=== PATIENT | female | born 1980 | race Caucasian/White ===

== ENCOUNTER 2019-12-06 09:15 | Outpatient (CLI) | payer OTHER, SELFPAY ==
--- NOTE | ~2019-12-06 | US_ITS ---
EXAMINATION: US venous doppler [facility] DATE: 12/06/2019 09:54 INDICATION: Lower limb edema TECHNIQUE: Cabral scale images without and with compression and Doppler images of the bilateral lower e xtremity veins were obtained. COMPARISON: None. FINDINGS: The right common femoral vein, profunda femoral vein, femoral vein, popliteal vein, peroneal trunk, p osterior tibial veins, and greater saphenous vein are patent. The left common femoral vein, profunda femoral vein, femoral vein, popliteal vein, peroneal trunk, po sterior tibial veins, and greater saphenous vein are patent. IMPRESSION: 1. Patent bilateral lower extremity veins. No evidence of deep venous thrombosis. Reviewed, dictated and finalized at location A. [place] ADMINISTRATIVE ASSISTANT IMPRESSION: 1. Patent bilateral lower extremity veins. No evidence of deep venous thrombosi s.
== END 2019-12-06 09:16 | disposition home or self-care (01) ==
LOC: ANHIMG 09:20
PROVIDERS: PCP Internal Medicine; Visit Provider Internal Medicine
DX: R60.0 Localized edema (principal)
CPT/HCPCS: 93970

== ENCOUNTER 2020-03-30 08:54 | Outpatient (CLI) | payer OTHER, SELFPAY ==
--- NOTE | ~2020-03-30 | US_ITS ---
US right upper quadrant INDICATION: Elevated liver enzymes PROCEDURE: Realtime right upper abdominal ultrasound. COMPARISON: Ultrasound dated 04/08/2018 FINDINGS: The pancreas is normal without focal mass or pancreatic ductal dilation. Liver is enlarged measuring 22 cm. Liver echotexture is increased, consistent with fatty infiltration. There is ana l directional flow in the portal vein. Gallbladder is surgically absent. Common bile duct measures 6.7 mm. IMPRESSION: 1: Hepatomegaly with fatty infiltration of the liver. Reviewed, dictated and finalized at location A.
== END 2020-03-30 08:55 | disposition home or self-care (01) ==
PROVIDERS: PCP Internal Medicine; Visit Provider Internal Medicine
DX: R74.8 Abnormal levels of other serum enzymes (principal)
CPT/HCPCS: 76705

== ENCOUNTER 2020-09-20 11:29 | Outpatient (CLI) | payer BC, SELFPAY ==
--- NOTE | ~2020-09-20 | MM_ITS ---
EXAMINATION: MM screening jose angel BI w priyanka HISTORY: Screening mammogram TECHNIQUE: Craniocaudal and mediolateral oblique 3-D tomosynthesis images were obtained and synthetic 2-D images were generated. CAD analysis was submitted and interpreted. COMPARISON: None, baseline BREAST PARENCHYMAL COMPOSITION: There are scattered areas of fibroglandular density. FINDINGS: There is no evidence of suspicious mass, calcification, or architectural distortion to sugg est malignancy in either breast. IMPRESSION: 1. No mammographic evidence of malignancy. 2. Recommend routine screening mammography in one year. BI-RADS Category 1: Negative Reviewed, dictated and finalized at location A. N TUNER
== END 2020-09-20 11:30 | disposition home or self-care (01) ==
LOC: ANHIMG 11:33
PROVIDERS: PCP Internal Medicine; Visit Provider Internal Medicine
DX: Z12.31 Encounter for screening mammogram for malignant neoplasm of breast (principal)
CPT/HCPCS: 77063; 77067

== ENCOUNTER 2021-09-04 13:46 | Emergency (ER) | payer BC, SELFPAY ==
[2021-09-04 13:56] VITALS: BP 151/90; PULSE 100; RESP 20; TEMP 36.2; O2SAT 99
[2021-09-04 14:00] VITALS: BP 151/90; PULSE 100; RESP 20; TEMP 36.2; O2SAT 99
--- NOTE | 2021-09-04 14:19 | ED.GENADULT ---
HPI - General Adult General Chief complaint: Skin/Abscess/Foreign Body Stated complaint: rash Time Seen by Provider: 09/04/21 14:23 Source: patient Mode of arrival: ambulatory Limitations: no limitations History of Present Illness HPI narrative: 41-year-old female patient presents to the [facility] with a rash to the right forearm since yesterday. Patient states she came into contact with some poison sumac which she thought was by now however she woke up today with an itchy rash in the forearm. Patient states she tends to get this every year and usually always needs steroids because it spreads quickly. Patient states she did use some leftover triamcinolone cream that she had from a previous rash. Related Data Home Medications Medication Instructions Recorded Confirmed bromocriptine mg 09/04/21 exenatide microspheres [Bydureon mg SUBCUT 09/04/21 BCise] spironolactone 09/04/21 09/04/21 Allergies Allergy/AdvReac Type Severity Reaction Status Date / Time ciprofloxacin Allergy Unknown Rash Verified 09/04/21 13:58 environmental allergens AdvReac Unknown sneezing, Uncoded 09/04/21 13:58 congestion Review of Systems Review of Systems: CONSTITUTIONAL: Denies fever, chills, or sweats. EYES: Denies visual changes, redness, or discharge. ENT: Denies rhinorrhea, congestion, sore throat, or otalgia. CARDIOVASCULAR: Denies chest pain, palpitations, or edema. RESPIRATORY: Denies cough or dyspnea. GASTROINTESTINAL: Denies abdominal pain, nausea, vomiting, or diarrhea. GENITOURINARY: Denies dysuria or hematuria. SKIN: Positive rash with itching to right forearm MUSCULOSKELETAL: Denies back pain, joint pain, or myalgia. NEUROLOGIC: Denies headache, numbness, or weakness. PSYCHIATRIC: Denies anxiety or depression. [facility] Past Medical History Medical History (Updated 09/04/21 @ 14:26 by LOYD Pastor) Chronic sinusitis Diabetes Gallstones GERD (gastroesophageal reflux disease) IBS (irritable bowel syndrome) Lactose intolerance Nasal bone fracture Palpitations Surgical History Surgical History (Updated 09/04/21 @ 14:26 by LOYD Pastor) H/O sinus surgery Hx of cholecystectomy December 2005 Family History Family History (Updated 06/16/17 @ 14:13 by DOCTOR UNKNOWN) Other Diabetes mellitus Family history of chronic obstructive pulmonary disease Family history of malignant neoplasm of uterus Family history of pancreatic cancer Hypertension Social History Social History Smoking status: Never smoker Comments At the time of my signature I agree with nursing past medical history, surgical, social, and family history. There is no relevant family history pertinent to the presenting complaint. Exam Narrative: GENERAL: Well-appearing, well-nourished, and in no acute distress. HEAD: Normocephalic, atraumatic. EYES: PERRLA and EOMI. ENT: Nares clear, no rhinorrhea or epistaxis. Mucous membranes moist. NECK: Supple. No lymphadenopathy CHEST: Clear to auscultation. No respiratory distress. HEART: Regular rate and rhythm. No murmur heard. Normal peripheral pulses. ABDOMEN: Soft, nontender, nondistended, normal active bowel sounds. EXTREMITIES: Normal range of motion. No edema. SKIN: Warm, dry, no rash. Patient has raised erythemic rash with notable fluidlike blisters around the area. The entire rash only measuring approximately 2 cm in length. Located on the right forearm. Patient does complain of itching to the area. No open wounds or drainage noted NEURO: No focal deficits. Alert and oriented x3. Course Vital Signs Vital signs: Vital Signs Temperature 36.2 C L 09/04/21 13:56 Pulse Rate 100 09/04/21 13:56 Respiratory Rate 20 09/04/21 13:56 Blood Pressure 151/90 H 09/04/21 13:56 Pulse Oximetry 99 09/04/21 13:56 Temperature 36.2 C L 09/04/21 13:56 Pulse Rate 100 09/04/21 13:56 Respiratory Rate 20 09/04/21 13:56 Blood Pressure 151/90 H 09/04/21
== END 2021-09-04 14:25 | disposition home or self-care (01) ==
PROVIDERS: Emergency Provider Nurse Practitioner Family; PCP Internal Medicine
DX: L24.7 Irritant contact dermatitis due to plants, except food (principal); E11.9 Type 2 diabetes mellitus without complications; K21.9 Gastro-esophageal reflux disease without esophagitis
CPT/HCPCS: 99213; G0463